=== PATIENT | male | born 1985 | race Caucasian/White ===

== ENCOUNTER 2016-11-20 11:52 | Emergency (ER) | payer OTHER ==
[~2016-11-20] VITALS: Ht 177.8 cm; Wt 67.6 kg
[2016-11-20 11:58] VITALS: BP 122/73
[2016-11-20] MEDS ORDERED: FLUORESCEIN OPHTHALMIC 1 MG STRIP ONE (12:10)
[2016-11-20] MEDS ORDERED: PROPARACAINE OPHTH 0.5%, 15ML ONE (12:10)
== END 2016-11-20 14:15 ==
LOC: ED 12:14
DX: T15.01XA Foreign body in cornea, right eye, initial encounter (principal); X58.XXXA Exposure to other specified factors, initial encounter; Y93.89 Activity, other specified; Y92.89 Other specified places as the place of occurrence of the external cause; Y99.8 Other external cause status
CPT/HCPCS: 99284